=== PATIENT | male | born 1990 | race Caucasian/White ===

== ENCOUNTER 2016-08-18 23:47 | Emergency (ER) | payer SELFPAY ==
[2016-08-19 00:13] VITALS: TEMP 98.6; BMI 23.4
[2016-08-19] MEDS ORDERED: FLUORESCEIN SODIUM 1 MG APP ONE (01:28)
[2016-08-19] MEDS ORDERED: PROPARACAINE 0.5% OPHTH SOLN 15 ML BOTTLE ONE (01:28)
[2016-08-19] MEDS ORDERED: ERYTHROMYCIN 0.5% OPHTH OINT TUBE OD ONE (01:45)
--- NOTE | 2016-08-19 01:48 | EDPRACDOC ---
- General Information Chief Complaint: Eye Problems Stated Complaint: RT EYE PAIN Time Seen by Provider: 08/19/16 01:46 Information Source: Patient Mode Of Arrival: Car Home Medications: Home Medications Amox Tr/Potassium Clavulanate [Augmentin Tablet (875mg/125mg)] 1 tab PO BID #20 tablet 02/25/16 Ibuprofen 800 mg PO TID PRN #30 tablet 02/25/16 Erythromycin Base [Erythromycin] 3.5 gm OD Q6 #1 oint...g. 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 no known exposure, is not employed, was working on the computer earlier. no contacts. no change in vision , no drainage or discharge. no h/o same. He flushed his eye at home. Eye Symptoms: Reports: Discomfort. Denies: Stye, Blurred Vision, Double Vision , Photophobia, URI Symptoms, Flashers, Floaters Symptoms: Moderate Relevent History: Denies: Machinery use, Welding Rhinorrhea: Reports: None Associated Signs and Symptoms:: Denies: Fever, Tearing, Photophobia ED Past Medical History - History Reviewed Yes Nurses notes reviewed and agree except as marked - Patient Medical History Psychological History: Denies: Depression Additional Past Medical History: CHRONIC TESTICLE PAIN - Social Medical History Smoking Status: Never smoker Social History: Reports: Marijuana Use EDM Review of Systems - Review of Systems ROS Negative Except as Marked: Yes All systems reviewed and were negative except as marked - Physical Exam Constitutional: Alert (Awake), No apparent distress Oriented to: Time, Person, Place Last recorded Vital Signs: Last Vital Signs Temp 98.6 F 08/19/16 00:10 Pulse 75 08/19/16 00:10 Resp 20 08/19/16 00:10 BP 129/85 08/19/16 00:10 Pulse Ox 95 08/19/16 00:10 Oxygen Pulse Oxygen Saturation 95 O2 Device Room Air Oxygen Flow Rate Fraction of Inspired Oxygen ( FIO2) - HEENT Head: Normal ( normocephalic) Eye Exam: Other (OS WNL. OD mild injection, no FB on exam lids flipped and clear. no dye uptake on Winston lamp exam after fluorosceine) Oropharynx: Normal (Pharynx:Moist without exudate,Gums-no swelling) Tympanic Membrane: Normal ENT EAC: Normal TMJ: Normal Nose: No Symptoms Reported (septum midline) Neck: Normal (FROM, trachea at midline) - Respiratory/Cardiovascular Respiratory: Normal - CTA (BBS clear to auscultation without adventitious sounds ) Cardiovascular: Normal (RRR without murmur, gallop or rub) - GI Auscultation: Normal (NABS) Palpation: Normal (Soft,No rebound or guarding, non distended) Tenderness: Non tender Carter's Sign: Negative - Musculoskeletal Back: Normal (Non-Tender) Extremities: Normal (Normal tone, Pulses 2+ No cyanosis or edema, FROM) - Integumentary Skin: Normal, Warm, Dry Lymphatics: Normal (no adenopathy) - Neurologic Memory Impaired: Normal Motor Function: Normal (Normal tone, Pulses 2+ No cyanosis or edema, FROM) Cranial Nerve: Normal (CN II-X11 intact sensation, strength 5/5) Cerebellar: Normal Mood Description: Normal Perception: Normal - Re-evaluation Re-evaluation 1 Re-evaluation Time: 01:50 (pain resolved after tetracaine eye drop. plan flush eye NS, E-mycin ointment, dc home referral to [facility]) Decision Time to Discharge: 01:51 - Departure Yes I personally saw and evaluated the patient. Disposition: Home Final Diagnosis: Conjunctivitis Instructions: Conjunctivitis (ED) Education/Counseling Given To: Patient Education/Counseling Given Regarding: Diagnosis, Treatment, Follow Up Referrals: None,No Provider [Primary Care Provider] - One Week Emiliano Herndon MD [Staff Physician] - One Week Prescriptions: New Erythromycin Base [Erythromycin] 3.5 gm OD Q6 #1 oint...g. No Action Amox Tr/Potassium Clavulanate [Augmentin Tablet (875mg/125mg)] 1 tab PO BID # 20 tablet Ibuprofen 800 mg PO TID PRN #30 tablet PRN Reason: Pain Additional Instructions: Call tomorrow to schedule follow up with eye doctor.
[2016-08-19] MEDS ORDERED: DIPHENHYDRAMINE 25 MG CAP PO ONE ×2 (01:57→01:59)
[2016-08-19 02:28] VITALS: BP 128/70; PULSE 72
== END 2016-08-19 02:27 | disposition home or self-care (01) ==
LOC: ED 23:47
DX: H10.9 Unspecified conjunctivitis (principal)
CPT/HCPCS: 99283; J3490